=== PATIENT | female | born 1955 ===

== ENCOUNTER 2021-12-03 11:15 | Inpatient (IN) | payer OTHER ==
[~2021-12-03] VITALS: Ht 152.4 cm; Wt 78.9 kg
[2021-12-03] MEDS ORDERED: SYNTHROID75 MCG PO (13:45)
[2021-12-05] MEDS ORDERED: ATORVASTATIN CA10 MG (08:38)
[2021-12-05] MEDS ORDERED: REFRESH OPTIVE10 ML (08:38)
[2021-12-05] MEDS ORDERED: DESONIDE15 GM (08:38)
[2021-12-05] MEDS ORDERED: KETOCONAZOLE15 GM (08:38)
== END 2021-12-07 14:32 | disposition home or self-care (01) | DRG 741 ==
LOC: OB/GYN 12-05 06:00 → O/R 12-05 06:00 → OB/GYN 12-05 10:15
PROVIDERS: ADMIT Specialist; ATTEND Specialist
PROC: 0UT70ZZ Resection of Bilateral Fallopian Tubes, Open Approach (ICD-10-PCS; 2021-12-05)
PROC: 0UT20ZZ Resection of Bilateral Ovaries, Open Approach (ICD-10-PCS; 2021-12-05)
PROC: 07BC0ZZ Excision of Pelvis Lymphatic, Open Approach (ICD-10-PCS; 2021-12-05)
PROC: 0UT90ZZ Resection of Uterus, Open Approach (ICD-10-PCS; principal; 2021-12-05 10:15)
DX: C54.1 Malignant neoplasm of endometrium (principal); E03.9 Hypothyroidism, unspecified